=== PATIENT | female | born 1970 | race Asian ===

== ENCOUNTER 2017-04-04 09:52 | Emergency (ER) | payer BC ==
[~2017-04-04] VITALS: Ht 162.6 cm; Wt 49.0 kg
[2017-04-04 09:55] VITALS: BP 137/79; PULSE 78; TEMP 36.6; O2SAT 100; Ht 162.6 cm; Wt 49.0 kg
[2017-04-04] MEDS ORDERED: METH4PAK PO (10:43)
--- NOTE | 2017-04-04 15:13 | EMERGENCY ROOM VISIT NOTE ---
History First contact with patient: 10:00 Chief Complaint: ALLERGIC REACTION Stated Complaint: SKIN IRRITATION,EYE SWOLLEN,REDNESS ON FACE Nursing Triage Summary: pt to the ED with c/o allergic reaction to hair dye History of Present Illness The patient is a 46 year old female who presents to the Emergency Room with complaints of itchiness, redness and swelling of her scalp, face, neck and upper back. The patient reports that she dyed her hair on Tuesday, and by that evening, started to notice burning of her scalp. She immediately washed her hair, and upon awakening on Tuesday, noticed worsening redness and itchiness. The patient reports that she has had an allergic reaction to hair dye in the past. She denies using any new topical products, and denies any other food or drink allergies. She denies any other recent infections. She denies pain. She has been taking Zyrtec and Tylenol without any significant relief. Review of Systems 10 system review was performed and was negative except for pertinent positives and negatives as indicated in history of present illness Past Medical/Surgical History Medical Problems: (1) No significant past medical history Surgical Problems: (1) No history of previous surgery Family History Unremarkable Social History Smoking Status: Never Smoker Alcohol Use: none Marital Status: single Housing Status: lives with family Occupation Status: employed Current/Historical Medications Scheduled Methylprednisolone (Medrol Dosepak), 0 PO DAILY Physical Exam Vital Signs Date Time Temp Pulse Resp B/P (MAP) Pulse Ox O2 Delivery O2 Flow Rate FiO2 04/04/17 09:55 36.6 78 20 137/79 100 Room Air Physical Exam CONSTITUTIONAL: Healthy and well nourished. Alert and oriented X 3 with positive affect. Patient does not appear in any acute distress. HEENT: Examination shows notable erythema and edema of the scalp, upper forehead and temples. No vesicles, pustules or desquamation noted. No evidence for secondary infection. OROPHARYNX: No evidence for angioedema. NECK: Full active range of motion without discomfort. RESPIRATORY: Clear to auscultation bilaterally with no wheezing, crackles, rhonchi or stridor. CARDIOVASCULAR: Regular rate and rhythm with no murmurs, rubs or gallops. MUSCULOSKELETAL: Full range of motion of all joints without discomfort. INTEGUMENTARY: In addition to the scalp and facial irritation, the patient also has erythema extending onto the upper back and posterior neck region. As indicated in the previous section, no vesicles, pustules or desquamation noted. NEUROLOGIC: No focal neurologic deficits noted. Medical Decision & Procedures ED Course Patient history and physical exam were performed. Nurse's notes were reviewed. Vital signs were reviewed and were also normal. The patient was advised that this is a chemical burn or contact dermatitis from the hair dye. At this point , she was provided a prescription for a Medrol Dosepak. She was encouraged to take nondrowsy antihistamines for additional relief. She may also take Benadryl for worse pruritus. She was warned about sedation while taking Benadryl. She was encouraged to follow-up with her PCP as needed for further management, returning to the emergency department as needed for uncontrollable symptoms. She was also provided an ice pack for application to local hot spots. The patient was happy with plan of care, voiced understanding of all discharge instructions, refused any medications while in the emergency department, and denied any pain at the time of discharge. Medical Decision Blood Pressure Screening Patient's blood pressure: Normal blood pressure Impression Primary Impression: Contact allergic reaction Departure Information Dispostion Home / Self-Care Condition GOOD Prescriptions Methylprednisolone (MEDROL DOSEPAK) 4 Mg Ronny 0 PO DAILY, #1 PKT Prov: Js Arenas PA 04/04/17 Referrals Alfredo ClarkeD.O. Forms HOME CARE DOCUMENTATION FORM, IMPORTANT VISIT INFORMATION Patient Instructions My [facility] Additional Instructions Intermittently apply ice to areas of swelling and itch. Take Medrol Dosepak daily as prescribed - recommend taking this medication in the morning. Take other antihistamines for additional itch relief (Zyrtec, [place], Claritin) . You can also take Zantac 150 mg every 12 hours for additional relief. Take Benadryl 25-50 mg every 6-8 hours for worse itch. Remember that Benadryl can make you drowsy. Suggest follow-up with the [facility] (Dr. Clarke) for further reevaluation and management - call for an appointment.
== END 2017-04-04 10:50 | disposition home or self-care (01) ==
LOC: C.EDB 09:53 → C.EDC 10:50
DX: L23.4 Allergic contact dermatitis due to dyes (principal)